=== PATIENT | female | born 1950 | race Caucasian/White ===

== ENCOUNTER 2018-07-10 20:58 | Observation (INO) | payer MEDICARE ==
[~2018-07-10] VITALS: Ht 170.2 cm; Wt 75.0 kg
[~2018-07-10 20:58] MED LIST: CIPR500 PO; Cleocin HCl300 MG PO; Naprosyn500 MG PO; ONDA4 PO
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
--- NOTE | 2018-07-11 07:16 | NUR ---
07/11/18 0716 Amanda Carr VERIFICATIONS: EDIT CHART.
[2018-07-11] MEDS ORDERED: ONDA4ODT PO (14:02)
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
--- NOTE | 2018-07-11 17:53 | NUR ---
DISCHARGE PT PROVIDED WITH WRITTEN AND VERBAL DISCHARGE INSTRUCTIONS. SHE REPORTED UNDERSTANDING AND VERBALIZED WHEN FOLLOW-UP WOULD TAKE PLACE. PRESCRIPTIONS CALLED TO [facility] IN [place]. PT REQUESTED TO AMBULATE OUT. SHE LEFT AT 1745.
== END 2018-07-11 17:35 | disposition home or self-care (01) ==
LOC: ER 20:58 → SURS 20:59
PROVIDERS: ADMIT Orthopaedic Surgery
DX: S62.632B Displaced fracture of distal phalanx of right middle finger, initial encounter for open fracture (principal); R11.2 Nausea with vomiting, unspecified; Z23 Encounter for immunization; Z88.8 Allergy status to other drugs, medicaments and biological substances; Z88.5 Allergy status to narcotic agent; Z88.0 Allergy status to penicillin; Z88.2 Allergy status to sulfonamides; Z91.048 Other nonmedicinal substance allergy status; Z66 Do not resuscitate; W28.XXXA Contact with powered lawn mower, initial encounter
CPT/HCPCS: 64450; 73140; 90471; 90714; 99284-25; J1100; J1885; J2405; J2704; J3010; J7030